=== PATIENT | female | born 1960 | race Caucasian/White ===

== ENCOUNTER 2018-01-19 12:30 | Emergency (ER) | payer OTHER ==
[~2018-01-19] VITALS: Ht 152.4 cm; Wt 54.4 kg
[2018-01-19 13:35] LABS: ABSOLUTE BASOPHIL COUNT 0.1 /CUMM (0.0-0.2); ABSOLUTE EOSINOPHIL COUNT 0.3 /CUMM (0.0-0.7); ABSOLUTE LYMPH COUNT 1.8 /CUMM (1.2-3.4); ABSOLUTE MONOCYTE COUNT 0.7 /CUMM (0.10-0.60); BASOPHIL % 0.8 % (0.0-2.0); EOSINOPHIL % 3.8 % (0-5); GRANULOCYTE % 67.2 % (42.2-75.2); HEMATOCRIT 43.2 % (37-47); MEAN CORPUSCULAR HGB 30.4 PG (27.0-31.0); MEAN CORPUSCULAR HGB CONC 33.3 G/DL (33.0-37.0); MEAN CORPUSCULAR VOLUME 91.3 FL (81.0-99.0); MEAN PLATELET VOLUME 8.5 FL (7.4-10.4); PLATELET COUNT 283 /CUMM (130-400); RBC DISTRIBUTION WIDTH 13.6 % (11.5-14.5); RED BLOOD CELL CT 4.74 /CUMM (4.20-5.40); WHITE BLOOD CELL COUNT 8.9 /CUMM (4.8-10.8)
[2018-01-19 16:53] VITALS: BP 116/77
--- NOTE | 2018-01-19 17:35 | ED GENERAL ADULT ---
History of Present Illness General Chief Complaint: General Adult Stated Complaint: WEAKNESS Vital Signs & Intake/Output Vital Signs & Intake/Output Vital Signs Date Time Temp Pulse Resp B/P B/P Pulse O2 O2 Flow FiO2 Mean Ox Delivery Rate 01/19 1653 97.8 90 16 116/77 95 Room Air 01/19 1237 97.0 88 15 117/78 99 Room Air Room Air ED Intake and Output 01/20 0000 01/19 1200 Intake Total 0 Output Total Balance 0 Intake, Oral 0 Patient 120 lb Weight Weight Reported by Patient Measurement Method Allergies Coded Allergies: No Known Allergies (01/19/18) Reconcile Medications No Known Home Medications Triage Note: PT TO ED FOR C/C OF GENERALIZED WEAKNESS X 1 WEEK. PT HAD A RASH AND WAS TREATED X 1 WEEK AGO WITH BENADRYL AND PREDNISONE AND IS UNSURE IF IT'S RELATED TO THAT. PT COMPLAINS THAT TODAY SHE FEELS VERY WEAK, NAUSEAS, FEELING LIKE SHE WAS GOING TO PASS OUT EARLIER. DENIES PAIN. NO ACUTE DISTRESS NOTED IN TRIAGE. Past History Travel History Traveled to [place] past 21 day No Medical History Neurological: NONE EENT: NONE Cardiovascular: NONE Respiratory: NONE Gastrointestinal: NONE Hepatic: NONE Renal: NONE Musculoskeletal: NONE Psychiatric: NONE Endocrine: NONE Blood Disorders: NONE Cancer(s): breast cancer [employer]/Reproductive: NONE Psychosocial History What is your primary language Urdu Tobacco Use: Quit >30 days ago ETOH Use: occasional use Illicit Drug Use: denies illicit drug use Progress Plan of Care: Orders Procedure Date/time Status Add-on Test (ER Only) 01/19 1736 Active Add-on Test (ER Only) 01/19 1509 Active THYROID STIMULATING HORMONE 01/19 1319 Complete TROPONIN LEVEL 01/19 1319 Complete THYROXINE 01/19 1319 Complete COMPREHENSIVE METABOLIC PANEL 01/19 1309 Complete CBC WITHOUT DIFFERENTIAL 01/19 1309 Complete EKG 01/19 1307 Active Laboratory Tests 01/19/18 1737: Urine Test Cancelled 01/19/18 1736: Urine Color Cancelled, Urine Clarity Cancelled, Urine pH Cancelled, Ur Specific [place] Cancelled, Urine Protein Cancelled, Urine Ketones Cancelled, Urine Nitrite Cancelled, Urine Bilirubin Cancelled, Urine Urobilinogen Cancelled, Ur Leukocyte Esterase Cancelled, Ur Microscopic Cancelled, Urine Hemoglobin Cancelled, Urine Glucose Cancelled 01/19/18 1319: Anion Gap 12, Estimated GFR > 60, BUN/Creatinine Ratio 21.4, Glucose 136 H, Calcium 9.6, Total Bilirubin 0.5, AST 23, ALT 45, Alkaline Phosphatase 78, Troponin I < 0.01, Total Protein 6.2 L, Albumin 3.6, Globulin 2.6, Albumin/ Globulin Ratio 1.4, TSH 0.803, Thyroxine (T4) 9.6, CBC w Diff NO MAN DIFF REQ, RBC 4.74, MCV 91.3, MCH 30.4, MCHC 33.3, RDW 13.6, MPV 8.5, Gran % 67.2, Lymphocytes % 20.0 L, Monocytes % 8.2, Eosinophils % 3.8, Basophils % 0.8, Absolute Granulocytes 6.0, Absolute Lymphocytes 1.8, Absolute Monocytes 0.7 H, Absolute Eosinophils 0.3, Absolute Basophils 0.1 Departure Departure Disposition: ER WALKOUT Condition: Stable Clinical Impression Primary Impression: Rash Secondary Impressions: Nausea & vomiting Referrals: Patient Has No Primary Care Dr (PCP/Family) Departure Forms: Customer Survey General Discharge Information Prescriptions: Current Visit Scripts No Known Home Medications
== END 2018-01-19 19:41 | disposition admitted as inpatient to this hospital (09) ==
LOC: ERH 12:30
PROVIDERS: Emergency Medicine
DX: R53.1 Weakness (principal)
CPT/HCPCS: 81025; 93005; 93010; 99281